=== PATIENT | male | born 1980 | race Hispanic/Latino ===

== ENCOUNTER → 2024-01-31 08:20 | Outpatient (REF) | payer OTHER, SELFPAY ==
[2024-01-31 10:09] LABS: ALT (SGPT) 61 U/L (0-50); AST (SGOT) 44 U/L (17-59); Albumin 4.8 g/dl (3.5-5.0); Alkaline Phosphatase 75 U/L (38-126); Blood Urea Nitrogen 13 mg/dl (9-20); Calcium 9.2 mg/dl (8.4-10.2); Carbon Dioxide 24 mmol/L (22-30); Chloride 105 mmol/L (98-107); Glucose 97 mg/dl (70-99); HDL Cholesterol 36 mg/dl; LDL Cholesterol, Calculated 168 mg/dl; Potassium 4.3 mmol/L (3.5-5.1); Sodium 139 mmol/L (135-145); Total Bilirubin 0.7 mg/dl (0.2-1.3); Total Cholesterol 232 mg/dl (50-199); Total Protein 8.4 g/dl (6.3-8.2); Triglyceride 142 mg/dl (10-149); Uric Acid 8.5 mg/dl (3.5-8.5); Very Low Density Lipoprotein 28 mg/dl (0-30); eGFR > 60.00
== END ==
LOC: CLINIC 08:20
PROVIDERS: ATTENDING PHYSICIAN Nurse Practitioner Adult Health
DX: E79.0 Hyperuricemia without signs of inflammatory arthritis and tophaceous disease (principal); E78.2 Mixed hyperlipidemia; R74.8 Abnormal levels of other serum enzymes
CPT/HCPCS: 36415; 80053; 80061; 84550

== ENCOUNTER → 2024-07-22 06:29 | Outpatient (REF) | payer OTHER, SELFPAY ==
[2024-07-22 08:25] LABS: ALT (SGPT) 120 U/L (0-50); AST (SGOT) 60 U/L (17-59); Albumin 4.8 g/dl (3.5-5.0); Alkaline Phosphatase 71 U/L (38-126); Blood Urea Nitrogen 14 mg/dl (9-20); Calcium 9.2 mg/dl (8.4-10.2); Carbon Dioxide 26 mmol/L (22-30); Chloride 102 mmol/L (98-107); Glucose 103 mg/dl (70-99); HDL Cholesterol 36 mg/dl; LDL Cholesterol, Calculated 140 mg/dl; Potassium 4.6 mmol/L (3.5-5.1); Sodium 141 mmol/L (135-145); Total Bilirubin 0.8 mg/dl (0.2-1.3); Total Cholesterol 214 mg/dl (50-199); Total Protein 7.9 g/dl (6.3-8.2); Triglyceride 190 mg/dl (10-149); Uric Acid 9.8 mg/dl (3.5-8.5); Very Low Density Lipoprotein 38 mg/dl (0-30); eGFR > 60.00
[2024-07-22 08:34] LABS: Vitamin D, 25-OH*** 32.4 ng/mL (30-80)
[2024-07-23 20:28] LABS: Hepatitis B Surface Antigen Negative (Negative)
[2024-07-23 20:46] LABS: Hepatitis B Core Ab, Total Negative (Negative); Hepatitis B Surface Antibody Negative
[2024-07-23 21:43] LABS: Hepatitis C Antibody Negative (Negative)
== END ==
LOC: REG 06:29
PROVIDERS: ATTENDING PHYSICIAN Nurse Practitioner Adult Health
DX: E79.0 Hyperuricemia without signs of inflammatory arthritis and tophaceous disease (principal); E55.9 Vitamin D deficiency, unspecified; E78.2 Mixed hyperlipidemia; R74.8 Abnormal levels of other serum enzymes
CPT/HCPCS: 36415; 80053; 80061; 82306; 84550; 86704; 86706; 86803; 87340

== ENCOUNTER → 2024-10-19 08:59 | Outpatient (REF) | payer OTHER, SELFPAY ==
[2024-10-19 10:28] LABS: ALT (SGPT) 66 U/L (0-50); AST (SGOT) 46 U/L (17-59); Albumin 4.8 g/dl (3.5-5.0); Alkaline Phosphatase 61 U/L (38-126); Blood Urea Nitrogen 13 mg/dl (9-20); Calcium 9.1 mg/dl (8.4-10.2); Carbon Dioxide 27 mmol/L (22-30); Chloride 100 mmol/L (98-107); Glucose 98 mg/dl (70-99); Potassium 4.3 mmol/L (3.5-5.1); Sodium 139 mmol/L (135-145); Total Bilirubin 0.7 mg/dl (0.2-1.3); Total Protein 8.2 g/dl (6.3-8.2); eGFR > 60.00
[2024-10-19 10:33] LABS: Uric Acid 9.5 mg/dl (3.5-8.5)
== END ==
LOC: CLINIC 08:59
PROVIDERS: ATTENDING PHYSICIAN Nurse Practitioner Adult Health
DX: E79.0 Hyperuricemia without signs of inflammatory arthritis and tophaceous disease (principal); Z87.39 Personal history of other diseases of the musculoskeletal system and connective tissue; R74.8 Abnormal levels of other serum enzymes
CPT/HCPCS: 36415; 80053; 84550

== ENCOUNTER → 2025-02-06 08:07 | Outpatient (REF) | payer OTHER, SELFPAY ==
[2025-02-06 09:41] LABS: ALT (SGPT) 60 U/L (0-50); AST (SGOT) 42 U/L (17-59); Albumin 4.3 g/dl (3.5-5.0); Alkaline Phosphatase 78 U/L (38-126); Blood Urea Nitrogen 12 mg/dl (9-20); Carbon Dioxide 25 mmol/L (22-30); Chloride 106 mmol/L (98-107); Glucose 97 mg/dl (70-99); Potassium 4.4 mmol/L (3.5-5.1); Sodium 142 mmol/L (135-145); Total Bilirubin 0.9 mg/dl (0.2-1.3); Total Protein 7.8 g/dl (6.3-8.2); eGFR > 60.00
== END ==
LOC: CLINIC 08:07
PROVIDERS: ATTENDING PHYSICIAN Nurse Practitioner Adult Health
DX: E79.0 Hyperuricemia without signs of inflammatory arthritis and tophaceous disease (principal); R74.8 Abnormal levels of other serum enzymes
CPT/HCPCS: 36415; 80053; 84550

== ENCOUNTER → 2025-05-08 07:29 | Outpatient (REF) | payer OTHER, SELFPAY ==
[2025-05-08 09:35] LABS: ALT (SGPT) 141 U/L (0-50); AST (SGOT) 75 U/L (17-59); Albumin 4.5 g/dl (3.5-5.0); Alkaline Phosphatase 74 U/L (38-126); Blood Urea Nitrogen 14 mg/dl (9-20); Calcium 8.7 mg/dl (8.4-10.2); Carbon Dioxide 26 mmol/L (22-30); Chloride 105 mmol/L (98-107); Glucose 103 mg/dl (70-99); Potassium 4.4 mmol/L (3.5-5.1); Sodium 138 mmol/L (135-145); Total Protein 8.1 g/dl (6.3-8.2); Uric Acid 9.9 mg/dl (3.5-8.5); eGFR > 60.00
== END ==
LOC: REG 07:29
PROVIDERS: ATTENDING PHYSICIAN Nurse Practitioner Adult Health
DX: E79.0 Hyperuricemia without signs of inflammatory arthritis and tophaceous disease (principal); R74.8 Abnormal levels of other serum enzymes
CPT/HCPCS: 36415; 80053; 84550

== ENCOUNTER → 2025-06-17 07:24 | Outpatient (REF) | payer OTHER, SELFPAY ==
[2025-06-17 10:18] LABS: ALT (SGPT) 140 U/L (0-50); AST (SGOT) 81 U/L (17-59); Albumin 4.8 g/dl (3.5-5.0); Alkaline Phosphatase 73 U/L (38-126); Blood Urea Nitrogen 10 mg/dl (9-20); Calcium 9.1 mg/dl (8.4-10.2); Carbon Dioxide 27 mmol/L (22-30); Chloride 102 mmol/L (98-107); Glucose 94 mg/dl (70-99); Potassium 4.5 mmol/L (3.5-5.1); Sodium 136 mmol/L (135-145); Total Protein 8.4 g/dl (6.3-8.2); Uric Acid 8.5 mg/dl (3.5-8.5); eGFR > 60.00
[2025-06-17 10:49] LABS: Vitamin D, 25-OH*** 35.1 ng/mL (30-80)
[2025-06-17 18:56] LABS: Hepatitis B Surface Antigen Negative (Negative)
[2025-06-17 19:14] LABS: Hepatitis A Antibody, Total Positive (Negative); Hepatitis C Antibody Negative (Negative)
== END ==
LOC: CLINIC 07:24
PROVIDERS: ATTENDING PHYSICIAN Nurse Practitioner Adult Health
DX: E79.0 Hyperuricemia without signs of inflammatory arthritis and tophaceous disease (principal); E55.9 Vitamin D deficiency, unspecified; R74.8 Abnormal levels of other serum enzymes
CPT/HCPCS: 36415; 80053; 82306; 84550; 86704; 86706; 86708; 86803; 87340

== ENCOUNTER → 2025-08-19 09:40 | Outpatient (REF) | payer OTHER, SELFPAY ==
[2025-08-19 12:45] LABS: Iron 118 ug/dl (49-181)
[2025-08-19 12:56] LABS: Total Iron Binding Capacity 317 ug/dl (261-462)
== END ==
LOC: CLINIC 09:40
PROVIDERS: ATTENDING PHYSICIAN Family Medicine
DX: R74.01 Elevation of levels of liver transaminase levels (principal)
CPT/HCPCS: 36415; 83540; 83550